=== PATIENT | male | born 1985 | race Caucasian/White ===

== ENCOUNTER 2017-05-14 13:03 | Emergency (ER) | payer OTHER ==
[2017-05-14 13:10] VITALS: TEMP 98.4
--- NOTE | 2017-05-14 13:39 | EDPHY ---
H & P Time Seen by Provider: 05/14/17 13:39 HPI/ROS: Chief complaint. Dark stool HPI. 32-year-old male presents emergency department with dark stools and blood on toilet paper. He had left hip research fists Ng done 1 week ago. He has been using aspirin and Mobic for pain control. He is unsure but thinks that he has had some bleeding and dark stools for the last 2-3 days. Does not have abdominal pain. No nausea or vomiting. No diarrhea. He has had occasional blood on toilet paper in the past. No fever. His left hip is feeling better. ROS Constitutional. no fever/chills, no weakness Eyes. no problems with vision ENT. no sore throat, no nasal drainage Cardiovascular. no chest pain Respiratory. no shortness of breath, no cough Abdominal. no abdominal pain, no nausea/vomiting, no diarrhea. Black stools and blood on toilet paper . no problems urinating MS. no calf pain/swelling, no neck/back pain, no joint pain Skin. no rash Lymph. no swollen glands Neuro. no headache, no dizziness, no difficulty walking or with speech Past Medical/Surgical History: Left hip resurfacing Social History: , nonsmoker, no alcohol Smoking Status: Current every day smoker Physical Exam: General Appearance: Alert well-developed male mild distress vital signs are stable Eyes: Pupils equal and round no pallor or injection. ENT, Mouth: Mucous membranes are moist. Respiratory: There are no retractions, lungs are clear to auscultation. Cardiovascular: Regular rate and rhythm. Gastrointestinal: Abdomen is soft and nontender, no masses, bowel sounds normal. Rectal exam shows small amount brown stool. No blood Neurological: Awake and alert, sensory and motor exams grossly normal. Skin: Warm and dry, no rashes. Musculoskeletal: Neck is supple nontender. Extremities symmetrical, full range of motion. Psychiatric: Patient is oriented X 3, there is no agitation. Constitutional: Initial Vital Signs Temperature (C) 36.9 C 05/14/17 13:07 Heart Rate 75 05/14/17 13:07 Respiratory Rate 17 05/14/17 13:07 Blood Pressure 138/92 H 05/14/17 13:07 O2 Sat (%) 98 05/14/17 13:07 O2 Delivery Mode Room Air Allergies/Adverse Reactions: No Known Allergies Allergy (Unverified 05/14/17 13:06) Home Medications: Medication Instructions Recorded Aspirin 325 mg (*) 05/14/17 Mobic 15 mg 05/14/17 Prevacid 05/14/17 Medical Decision Making Procedures: IV normal saline ED Course/Re-evaluation: Re-evaluation 3:50 p.m.. They stable. The patient, his , and I discussed laboratory evaluation, treatment plan including criteria for return importance all further evaluation. He expresses understanding agreement Differential Diagnosis: The patient has been taking double anti-inflammatories including Mobic and aspirin. I considered upper GI bleeding, gastritis, peptic ulcer disease. I have considered hemorrhoids as well. At this point no evidence for bleeding or anemia - Data Points Laboratory Results: Laboratory Results 05/14/17 14:10 05/14/17 14:10 05/14/17 05/14/17 05/14/17 15:35 14:10 14:10 WBC RBC Hgb Hct MCV MCH MCHC RDW Plt Count MPV Neut % (Auto) Lymph % (Auto) Kane % (Auto) Eos % (Auto) Baso % (Auto) Nucleat RBC Rel Count Absolute Neuts (auto) Absolute Lymphs (auto) Absolute Monos (auto) Absolute Eos (auto) Absolute Basos (auto) Absolute Nucleated RBC Immature Gran % Immature Gran # PT INR APTT Sodium 142 mEq/L mEq/L (135-145) Potassium 4.0 mEq/L mEq/L (3.5-5.2) Chloride 100 mEq/L mEq/L (97-110) Carbon Dioxide 28 mEq/l mEq/l (22-31) Anion Gap 14 mEq/L mEq/L (8-16) BUN 21 mg/dL mg/dL (7-23) Creatinine 0.8 mg/dL mg/dL (0.7-1.3) Estimated GFR > 60 Glucose 82 mg/dL mg/dL (70-100) Calcium 9.5 mg/dL mg/dL (8.5-10.4) Stool Occult Bld Scrn NEGATIVE (NEGATIVE) Salicylates 1.4 mg/dL L mg/dL (2.0-20.0) 05/14/17 05/14/17 14:10 14:10 WBC 8.30 10^3/uL 10^3/uL (3.80-9.50) RBC 4.79 10^6/uL 10^6/uL (4.40-6.38) Hgb 14.7 g/dL g/dL (13.7-17.5) Hct 42.6 % % (40.0-51.0) MCV 88.9 fL fL (81.5-99.8) MCH 30.7 pg pg (27.9-34.1) MCHC 34.5 g/dL g/dL (32.4-36.7) RDW 12.5 % % (11.5-15.2) Plt Count 357 10^3/uL 10^3/uL (150-400) MPV 10.1 fL fL (8.7-11.7) Neut % (Auto) 61.5 % % (39.3-74.2) Lymph % (Auto) 29.9 % % (15.0-45.0) Kane % (Auto) 6.5 % % (4.5-13.0) Eos % (Auto) 1.2 % % (0.6-7.6) Baso % (Auto) 0.4 % % (0.3-1.7) Nucleat RBC Rel Count 0.2 % % (0.0-0.2) Absolute Neuts (auto) 5.11 10^3/uL 10^3/uL (1.70-6.50) Absolute Lymphs (auto) 2.48 10^3/uL 10^3/uL (1.00-3.00) Absolute Monos (auto) 0.54 10^3/uL 10^3/uL (0.30-0.80) Absolute Eos (auto) 0.10 10^3/uL 10^3/uL (0.03-0.40) Absolute Basos (auto) 0.03 10^3/uL 10^3/uL (0.02-0.10) Absolute Nucleated RBC 0.02 10^3/uL H 10^3/uL (0-0.01) Immature Gran % 0.5 % % (0.0-1.1) Immature Gran # 0.04 10^3/uL 10^3/uL (0.00-0.10) PT 13.3 SEC SEC (12.0-15.0) INR 0.99 (0.83-1.16) APTT 28.5 SEC SEC (23.0-38.0) Sodium Potassium Chloride Carbon Dioxide Anion Gap BUN Creatinine Estimated GFR Glucose Calcium Stool Occult Bld Scrn Salicylates Departure - Departure Disposition: Home, Routine, Self-Care Clinical Impression: possible GI bleeding Condition: Good Instructions: Rectal Bleeding (ED) Additional Instructions: Discontinue the aspirin and take Mobic only. Continue Prevacid. Return for abdominal pain or worsening bleeding. Follow up with gastrointestinal physician for further evaluation for continued bleeding on toilet paper Referrals: NONE *PRIMARY CARE P,. [Primary Care Provider] - As per Instructions Isiah Huitron MD [Medical Doctor] - 2-3 days, if not improved
[2017-05-14 14:25] LABS: PLATELET COUNT 357 10^3/uL (150-400)
[2017-05-14 14:34] LABS: INR 0.99 (0.83-1.16); PROTIME(PATIENT) 13.3 SEC (12.0-15.0)
[2017-05-14 16:14] VITALS: BP 117/80; PULSE 78; RESP 18; O2SAT 97
== END 2017-05-14 16:14 | disposition home or self-care (01) ==
DX: K92.1 Melena (principal); F17.200 Nicotine dependence, unspecified, uncomplicated; Z79.82 Long term (current) use of aspirin
CPT/HCPCS: G0480

== ENCOUNTER 2017-12-10 20:16 | Emergency (ER) | payer OTHER ==
[2017-12-10 20:31] VITALS: BP 142/84
--- NOTE | 2017-12-10 21:00 | EDPHY ---
H & P Time Seen by Provider: 12/10/17 20:33 HPI/ROS: CHIEF COMPLAINT: Right hand pain HISTORY OF PRESENT ILLNESS: 32-year-old male right-hand dominant with up-to- date tetanus via private vehicle complaining of acute right hand pain after he punched the tailgate of his truck. Occurred shortly prior to arrival. No paresthesia. Pain to the 3rd 4th 5th MCP. Abrasion to same location. PHYSICAL EXAM (Prior to examination, patient consented to physical exam, hands were washed and my usual and customary physical exam procedures followed) 1) GENERAL: Well-developed, well-nourished, alert and oriented. Appears to be in no acute distress. 2) HEAD: Normocephalic 3) HEENT: Pupils equal, round, reactive to light bilaterally. 4) LUNGS: Breathing comfortably. 5) MUSCULOSKELETAL: Tender to palpation distal metacarpal of 3rd 4th 5th digit. Abrasions to same location. Extensor function intact. Soft compartments. Normal coloration. 6) SKIN: Abrasion to 3rd 4th 5th MCP dorsal aspect. 7) VASCULAR: pulses and cap refill present are brisk 8) NEUROLOGIC: Radial, ulnar, median nerve function intact with no deficits appreciated on exam DIFFERENTIAL DIAGNOSIS: in no particular order including but not limited to fracture, sprain, compartment syndrome Procedure: Splint Ortho Glass volar splint was applied by ER technician biological health. After application of the splint I returned and re-examined the patient. The splint was adequately immobilizing the joint and distal to the splint the patient's circulation and sensation were intact. Patient shows no signs of compartment syndrome. Was given orthopedic precautions. Smoking Status: Current every day smoker Constitutional: Initial Vital Signs Temperature (C) 36.9 C 12/10/17 20:28 Heart Rate 76 12/10/17 20:28 Respiratory Rate 16 12/10/17 20:28 Blood Pressure 142/84 H 12/10/17 20:28 O2 Sat (%) 95 12/10/17 20:28 Allergies/Adverse Reactions: No Known Allergies Allergy (Unverified 05/14/17 13:06) Home Medications: Medication Instructions Recorded NK [No Known Home Meds] 12/10/17 MDM/Departure - MDM Imaging Results: Imaging Impressions Hand X-Ray 12/10/17 20:35 Impression: No acute osseous abnormality. Images reviewed myself - Depart Disposition: Home, Routine, Self-Care Clinical Impression: Right hand pain Condition: Good Instructions: Hand Sprain (ED) Additional Instructions: Return to the ER immediately if you experience discoloration, have worsening pain, numbness, tingling, or any other symptoms that concern you. If you received x-rays in the emergency department today, be advised, that ligamentous , tendon, muscular, and other non-bony injury cannot be fully ruled out. Try to keep your affected extremity elevated above the level of your chest, and keep cold packs on the affected area, for the next 48 hours. Adult Pain & Fever Control: We recommend Acetaminophen (Tylenol) and Ibuprofen (Motrin,Advil) for pain and fever control. When fever is high or pain severe, both drugs can be used at the same time, but at different intervals. Please note the time differences. Your dose is: Acetaminophen [650]mg every 4 to 6 hours Ibuprofen 600mg every 6 hours with food OR Note: do not take Acetaminophen with Hydrocodone (Vicodin, Lortab) or Oycodone (Percocet). These medications also contain Acetaminophen. No more than 3000mg of Acetaminophen should be taken in 24 hours (for an adult). Referrals: Keli Escalante MD [Medical Doctor] - 5-7 days, call for appt.
== END 2017-12-10 21:30 | disposition home or self-care (01) ==
PROC: 2W3CX1Z Immobilization of Right Lower Arm using Splint (ICD-10-PCS; principal; 2017-12-10)
DX: M79.641 Pain in right hand (principal); F17.200 Nicotine dependence, unspecified, uncomplicated

== ENCOUNTER 2018-03-28 22:51 | Emergency (ER) | payer OTHER ==
--- NOTE | 2018-03-28 23:05 | EDPHY ---
H & P Stated Complaint: Left hand numbness s/p hitting head 03/26/18 Time Seen by Provider: 03/28/18 23:04 HPI/ROS: HPI CHIEF COMPLAINT: Hit head. HISTORY OF PRESENT ILLNESS: 33-year-old male, patient states he suffers from panic attacks. Patient presents emergency room stating that when he suffers from a panic attack he slammed his head into his head board on his bed in this calms him down and he is able to break is panic attack. He states yesterday at a panic attack slammed his head vertex of his head in the headboard his bed. Is panic attack resolved. However now he complains of a generalized headache, some mild neck pain, no midline neck pain, has some pain that goes down his left arm to his left hand and some numbness and tingling at times. Currently denies any significant pain at this time. States times he has numbness and tingling in his finger tips. He denies any weakness or arm weakness, denies gill box fixer strength weakness. Denies chest pain or shortness of breath. Denies midline cervical spine pain. Denies nausea vomiting. I did speak with him about his mental health. He denies wanting to hurt himself or anybody else. States he suffers from panic attacks. This often helps him break his panic attack. Past Medical History: Panic attacks. Past Surgical History: No recent surgery Social History: Lives locally denies drugs alcohol tobacco. Family History: Noncontributory ROS REVIEW OF SYSTEMS: 10 Systems were reviewed and negative with the exception of the elements mentioned in the history of present illness. Exam Constitutional triage nursing summary reviewed, vital signs reviewed, awake/ alert. Eyes normal conjunctivae and sclera, EOMI, PERRLA. HENT head and neck exam atraumatic on exam, no midline cervical spine pain or step-offs or crepitus, mild paravertebral cervical spine discomfort, left and right. normal inspection, atraumatic, moist mucus membranes, no epistaxis, neck supple/ no meningismus, no raccoon eyes. Respiratory clear to auscultation bilaterally, normal breath sounds, no respiratory distress, no wheezing. Cardiovascular rate normal, regular rhythm, no murmur, no edema, distal pulses normal. Gastrointestinal soft, non-tender, no rebound, no guarding, normal bowel sounds, no distension, no pulsatile mass. Genitourinary no CVA tenderness. Musculoskeletal no midline vertebral tenderness, full range of motion, no calf swelling, no tenderness of extremities, no meningismus, good pulses, neurovascularly intact. Skin pink, warm, & dry, no rash, skin atraumatic. Neurologic no focal weakness on exam. Patient has good gill box fixer strength bilaterally. Sensation intact. Full range of motion both arms. No weakness. awake, alert and oriented x 3, AAOx3, moves all 4 extremities equally, motor intact, sensory intact, CN II-XII intact, normal cerebellar, normal vision, normal speech. Psychiatric normal mood/affect. Heme/Lymph/Immune no lymphadenopathy. Differential Diagnosis: Includes but is not limited to in a particular order intracranial bleed, subdural, epidural, traumatic subarachnoid, concussion, closed head injury, cervical spine injury, disc herniation, annular tear, nerve root compression. Medical Decision Making: Plan for this patient CT scan head without contrast CT cervical spine without contrast for trauma, ibuprofen 800 mg and re-evaluate. Re-evaluation: CT scan head without contrast and CT cervical spine without contrast obtained by myself for trauma given that he hit his head into the headboard. The CT scan of the head without contrast and CT cervical spine without contrast are negative for acute traumatic injury this is faxed to me by [facility] at 11:56 p.m.. I have updated the patient about his CT results. He is comfortable going home. He denies any focal weakness, denies numbness or tingling, denies chest pain or shortness of breath, states he feels fine Return precautions discussed He understands return emergency room if develops worsening headache, fever, vomiting, not doing well. Do recommend he follows up with concussion specialist Source: Patient - Personal History Current Tetanus/Diphtheria Vaccine: Yes Current Tetanus Diphtheria and Acellular Pertussis (TDAP): Yes - Medical/Surgical History Hx Asthma: No Hx Chronic Respiratory Disease: No Hx Diabetes: No Hx Cardiac Disease: No Hx Renal Disease: No Hx Cirrhosis: No Hx Alcoholism: No Hx HIV/AIDS: No Hx Splenectomy or Spleen Trauma: No Other PMH: l hip replacement, miniscus repair R knee, screw in R hand - Social History Smoking Status: Current every day smoker Constitutional: Initial Vital Signs Temperature (C) 36.8 C 03/28/18 22:54 Heart Rate 77 03/28/18 22:54 Respiratory Rate 16 02/15/19 22:54 Blood Pressure 104/86 H 03/28/18 22:54 O2 Sat (%) 96 03/28/18 22:54 O2 Delivery Mode Room Air Allergies/Adverse Reactions: No Known Allergies Allergy (Verified 03/28/18 22:54) Home Medications: Medication Instructions Recorded NK [No Known Home Meds] 12/10/17 Medical Decision Making - Data Points Medications Given: Discontinued Medications Ibuprofen (Motrin) 800 mg PO EDNOW ONE Stop: 03/28/18 23:24 Last Admin: 03/28/18 23:26 Dose: 800 mg Departure - Departure Disposition: Home, Routine, Self-Care Clinical Impression: Concussion Qualifiers: Encounter type: initial encounter Loss of consciousness presence/duration: without LOC Qualified Code(s): S06.0X0A - Concussion without loss of consciousness, initial encounter Condition: Good Instructions: Concussion (ED), Head Injury (ED) Additional Instructions: 1. If you have worsening symptoms return to the emergency room. 2. Follow up with your primary care doctor Referrals: JONES ODONNELL [Other] - As per Instructions Vonda Momin MD [Medical Doctor] - As per Instructions
[2018-03-28] MEDS ORDERED: IBUPROFEN 800 MG TAB PO ONE (23:23)
[2018-03-29 00:46] VITALS: BP 125/79
== END 2018-03-29 00:49 | disposition home or self-care (01) ==
DX: S06.0X0A Concussion without loss of consciousness, initial encounter (principal); R59.0 Localized enlarged lymph nodes; F41.9 Anxiety disorder, unspecified; W22.09XA Striking against other stationary object, initial encounter; Y92.003 Bedroom of unspecified non-institutional (private) residence as the place of occurrence of the external cause